=== PATIENT | male | born 1965 | race Two or more races ===

== ENCOUNTER 2023-02-04 22:50 | Emergency (ER) | payer MEDICAID, OTHER ==
[~2023-02-04] VITALS: Ht 172.7 cm; Wt 91.0 kg
[2023-02-04 23:40] LABS: Basophils # (auto) 0.1 10 ^3/uL (0-0.2); Basophils % (auto) 0.9 % (0.0-2.0); Eosinophils # (auto) 0.1 10 ^3/uL (0-0.8); Hematocrit 45.1 % (41.0-53.0); Hemoglobin 15.3 g/dL (13.5-17.5); Lymphocytes # (auto) 1.9 10 ^3/uL (0.4-5.4); Lymphocytes % (auto) 20.5 % (10.0-50.0); Mean Corpuscular Hemoglobin 29.6 pg (28.0-32.0); Mean Corpuscular Hgb Conc. 33.9 g/dL (32.0-36.0); Mean Corpuscular Volume 87.3 fL (80.0-100.0); Monocytes # (auto) 1.3 10 ^3/uL (0-1.3); Monocytes % (auto) 14.6 % (0.0-12.0); Neutrophils # (auto) 5.8 10 ^3/uL (1.6-8.6); Nucleated Red Blood Cells % 0.1 %; Red Blood Cells 5.17 10^6/uL (4.5-5.90); Red Cell Distribution Width 13.7 % (11.8-14.3); White Blood Cell 9.2 10^3/uL (4.4-10.8)
[2023-02-04 23:46] LABS: Urine Bacteria NONE SEEN /hpf (None Seen); Urine Blood Negative /uL (Negative); Urine Specific Gravity 1.026 (1.001-1.035); Urine WBC 1 /hpf (0 - 3)
[2023-02-04 23:55] LABS: Magnesium 1.8 mg/dL (1.6-2.6); Potassium 3.4 mmol/L (3.5-5.1)
[2023-02-04 23:57] LABS: Bilirubin, Total 0.5 mg/dL (0.2-1.0); Total Protein 7.2 g/dL (6.4-8.2)
[2023-02-05] MEDS ORDERED: AML5T PO (04:59)
[2023-02-05 05:30] VITALS: BP 160/99; PULSE 57; RESP 14; TEMP 97.4; O2SAT 99
== END 2023-02-05 05:34 | disposition home or self-care (01) ==
LOC: ER 22:50
DX: I10 Essential (primary) hypertension (principal); R51.9 Headache, unspecified; R42 Dizziness and giddiness; E11.9 Type 2 diabetes mellitus without complications
CPT/HCPCS: 36415; 70450; 71045; 80053; 81001; 82962; 83735; 83880; 84484; 85025; 93005

== ENCOUNTER 2023-07-30 18:07 | Emergency (ER) | payer MEDICAID ==
[~2023-07-30] VITALS: Ht 172.7 cm; Wt 95.0 kg
[~2023-07-30 18:07] MED LIST: AML5T PO
[2023-07-30 19:21] LABS: Urine Bacteria NONE SEEN /hpf (None Seen); Urine Blood Negative /uL (Negative); Urine Clarity Clear (Clear); Urine Color Colorless (Yellow); Urine Protein, UAD Negative (Negative); Urine Specific Gravity 1.036 (1.001-1.035); Urine Urobilinogen Normal (Negative); Urine WBC 4 /hpf (0 - 3)
[2023-07-30] MEDS ORDERED: ONDANSETRON ODT 4 MG TAB PO ONE (19:30)
[2023-07-30] MEDS ORDERED: HYDROcodone-ACET 10/325MG TAB PO ONE (19:30)
[2023-07-30] MEDS ORDERED: TAMSULOSIN HYDROCHLORIDE 0.4 MG CAP PO ONE (19:30)
[2023-07-30 20:14] LABS: Basophils # (auto) 0.1 10 ^3/uL (0-0.2); Eosinophils # (auto) 0.2 10 ^3/uL (0-0.8); Eosinophils % (auto) 2.9 % (0.0-7.0); Hematocrit 45.1 % (41.0-53.0); Hemoglobin 15.1 g/dL (13.5-17.5); Lymphocytes # (auto) 1.8 10 ^3/uL (0.4-5.4); Lymphocytes % (auto) 30.9 % (10.0-50.0); Mean Corpuscular Hgb Conc. 33.5 g/dL (32.0-36.0); Mean Corpuscular Volume 86.6 fL (80.0-100.0); Monocytes # (auto) 0.7 10 ^3/uL (0-1.3); Monocytes % (auto) 11.1 % (0.0-12.0); Neutrophils # (auto) 3.2 10 ^3/uL (1.6-8.6); Neutrophils % (auto) 54.1 % (37.0-80.0); Nucleated Red Blood Cells % 0.2 %; Red Blood Cells 5.21 10^6/uL (4.5-5.90); Red Cell Distribution Width 13.4 % (11.8-14.3)
[2023-07-30 20:23] LABS: Chloride 103 mmol/L (98-107); Potassium 3.9 mmol/L (3.5-5.1); Sodium 135 mmol/L (136-145)
[2023-07-30 20:24] LABS: Anion Gap 6 (5-15); Calcium 9.6 mg/dL (8.5-10.1); Carbon Dioxide 26 mmol/L (20-30)
[2023-07-30 20:30] LABS: Blood Alcohol < 3.0 mg/dL (<10); Blood Urea Nitrogen 6 mg/dL (9-23)
[2023-07-30 20:34] LABS: Glucose 404 mg/dL (74-106)
[2023-07-30] MEDS ORDERED: SODIUM CHLORIDE 0.9% 2,000 ML IV ONE (21:15)
[2023-07-30] MEDS ORDERED: InsuLIN REG 1unit/0.01ml Soln (100units/ml) IV ONE (21:15)
[2023-07-30] MEDS ORDERED: CEPHALEXIN 250 MG CAP PO ONE (21:15)
[2023-07-30 21:35] LABS: Amphetamine Screen, Urine Neg (NEGATIVE); Barbiturate Scree,Urine Neg (NEGATIVE); Benzodiazephine Screen, Urine Neg (NEGATIVE); Cannabinoid Screen, Urine Neg (NEGATIVE); Cocaine Screen, Urine Neg (NEGATIVE); Opiate Scree,Urine Neg (NEGATIVE); Phencyclidine Screen, Urine Neg (NEGATIVE)
[2023-07-30] MEDS ORDERED: TAMS-35 PO (22:44)
[2023-07-30] MEDS ORDERED: CEPH250C PO (22:44)
[2023-07-31 01:30] VITALS: PULSE 67; RESP 18; TEMP 97.1; O2SAT 97
[2023-07-31 02:22] VITALS: BP 153/103
== END 2023-07-30 22:45 | disposition home or self-care (01) ==
LOC: ER 18:07
DX: E11.65 Type 2 diabetes mellitus with hyperglycemia (principal); I10 Essential (primary) hypertension; N40.0 Benign prostatic hyperplasia without lower urinary tract symptoms; M79.3 Panniculitis, unspecified; Z79.899 Other long term (current) drug therapy
CPT/HCPCS: 36415; 74176; 80048; 80307; 80320; 81001; 82962; 83605; 85025; 87040; 87086; 96361; 96374; 99285; J7030